=== PATIENT | female | born 1960 | race Two or more races ===

== ENCOUNTER → 2023-09-29 08:42 | Outpatient (REF) | payer OTHER, SELFPAY | LOC: HWWDC 08:42 | PROVIDERS: FAMILY PHYSICIAN Family Medicine | DX: Z12.31 Encounter for screening mammogram for malignant neoplasm of breast (principal) | CPT/HCPCS: 77063; 77067 ==

== ENCOUNTER → 2024-06-14 08:46 | Outpatient (REF) | payer OTHER, SELFPAY | LOC: HWRAD 08:46 | PROVIDERS: ATTENDING PHYSICIAN Physician Assistant Medical | DX: Z13.820 Encounter for screening for osteoporosis (principal) | CPT/HCPCS: 77080 ==